=== PATIENT | female | born 1960 | race Two or more races ===

== ENCOUNTER 2017-06-23 12:20 | Emergency (ER) | payer OTHER, MEDICAID ==
[~2017-06-23] VITALS: Ht 157.5 cm; Wt 79.4 kg
[~2017-06-23 12:20] MED LIST: ASPI81TA13 PO; ENAL5TAB92 PO; GABA250S2 PO; GLIP-115 PO; HYDR25TA4 PO; LEVEMIR SC; METF-370 PO; METF-371 PO; SIMV-8 PO
[2017-06-23 12:59] VITALS: BP 142/68
== END 2017-06-23 15:20 | disposition home or self-care (01) ==
LOC: ER 12:20
DX: N39.0 Urinary tract infection, site not specified (principal); E11.9 Type 2 diabetes mellitus without complications; I10 Essential (primary) hypertension; Z91.018 Allergy to other foods
CPT/HCPCS: 73502; 82962